=== PATIENT | female | born 1995 | race Two or more races ===

== ENCOUNTER 2025-03-01 12:57 | Outpatient (RCR) | payer MEDICAID, SELFPAY | END 2025-05-30 12:07 | disposition home or self-care (01) | LOC: ANHDMC 12:57 | PROVIDERS: Visit Provider Obstetrics & Gynecology | DX: O24.319 Unspecified pre-existing diabetes mellitus in pregnancy, unspecified trimester (principal); Z71.89 Other specified counseling | CPT/HCPCS: G0108 ==

== ENCOUNTER 2025-04-04 10:04 | Inpatient (IN) | payer BC, SELFPAY ==
[2025-04-04] VITALS (72 sets, daily range): BP systolic 99–149; BP diastolic 59–97; PULSE 73–119; RESP 14–16; TEMP 36.9–37.2; O2SAT 99–100; BMI 28.2
--- NOTE | 2025-04-04 10:04 | LDADM ---
This patient, Taylor Montenegro, was admitted to Labor/Delivery/Recovery 103 on 04/04/25 at 10:04. Plans for labor, pain management and were discussed with patient. Patient/family oriented to hospital policies and general routines including ID bracelet, bed and alarms, visiting hours, pain management, procedures, bathroom and other care routines, personal items, smoking policy, room service/diet and guest tray routines, infant security routines, and visiting hours. Patient/Family are encouraged to report perceived risks to care and to ask questions if they do not understand what they are told or what they should do. See OBIX for further documentation.
[2025-04-04 10:48] LABS: Hematocrit 32.6 % (37.0-47.0); Hemoglobin 9.5 g/dL (12.0-15.0); Immature Granulocyte Percent A 0.9 % (0-0.5); Lymphocytes Absolute Auto 4.16 K/mm3 (0.9-3.2); Mean Corpuscular HGB Conc 29.1 g/dl (32-36); Mean Corpuscular Hemoglobin 19.8 pg (26-34); Mean Corpuscular Volume 67.8 fl (80-100); Nucleated Red Blood Cells Absolute Auto 0.040 K/mm3 (0.0-0.012); Nucleated Red Blood Cells Perc 0.3 % (0.0-0.2); Platelet Count Result 352 k/mm3 (150-375); Red Blood Count 4.81 M/mm3 (4.2-5.4); White Blood Count 12.7 K/mm3 (4.5-10.0)
[2025-04-04] MEDS: LACTATED RINGERS 1,000 ML 125 ML IV CONT ×2 (10:49→11:48)
--- NOTE | 2025-04-04 11:00 | PM.IMHP ---
H&P: HPI History of Present Illness Date/Time: 04/04/25 11:00 Chief Complaint: Term labor Narrative: This is a 29-year-old 2 para 1 whose last menstrual period was 07/04/2024, EDC is 04/04/2025, presents at 40 weeks gestation in active labor. Her has been complicated by gestational diabetes and she has been on glyburide 5mg q.day with stated normal sugars. She is negative for group B strep Review of Systems Review of Systems: All systems reviewed & are unremarkable except as noted in HPI and below PMFSH Family History Family History Other Unknown family medical history Social History Social History Substance use: never Spiritual care concerns: No Meds Home Medications and Allergies Home Medications ?Medication ?Instructions ?Recorded ?Confirmed ?Type glyburide 5 mg tablet 5 mg PO DAILY 03/28/25 03/28/25 History Allergies Allergy/AdvReac Type Severity Reaction Status Date / Time No Known Allergies Allergy Verified 03/28/25 14:45 Vital Signs Vital Signs - 24 hr 04/04/25 10:51 Pulse Rate 97 Blood Pressure 118/97 H Exam Const: General: cooperative, healthy appearing, comfortable and well groomed Nutritional Appearance: average body habitus Orientation/consciousness: oriented to person, oriented to place and oriented to time HENMT: Head: normal to inspection Resp: Effort & Inspection: normal respiratory effort Cardio: Rate: regular rate Rhythm: regular rhythm Heart sounds: S1 normal heart sound present and S2 normal heart sound present GI: Inspection: normal to inspection (Gravid soft uterus) : External Female Exam: normal external appearance Speculum Exam - Vagina: normal appearance of the vagina Speculum Exam - Cervix: normal appearance of the cervix (Cervix 8cm by RN exam. FHT is reassuring) Assessment and Plan Assessment and plan (1) Term : Code(s): Z34.90 - Encounter for supervision of normal , unspecified, unspecified trimester Status: Acute (2) Gestational diabetes: Code(s): O24.419 - Gestational diabetes mellitus in , unspecified control Status: Acute Plan Sugars appear normal. heart tones are reassuring. She will get an epidural. Spontaneous vaginal delivery is expected. She is an epidural candidate
[2025-04-04 11:26] LABS: Anisocytosis 1+; Hypochromasia 1+; Schistocytes None Seen
[2025-04-04 12:10] LABS: Syphilis IgG/IgM Antibody Non-Reactive (Nonreactive)
--- NOTE | 2025-04-04 12:23 | PM.OBPNLAB ---
Pain Control Date/time seen: 04/04/25 12:23 Pain control: tolerating well and epidural Pelvic Exam Dilation (cm): 8 Effacement (%): 100 station: -1 Amniotic membrane status: Leaking
[2025-04-04] MEDS: OXYTOCIN 30 UNITS/NS 500 ML 30 UNITS/500 ML BAG 999 UNITS IV CONT (14:18)
--- NOTE | 2025-04-04 14:27 | P.PCNOB_ITS ---
OB - Vaginal Delivery Note Procedure Delivery date: 04/04/25 Events: Gestational Diabetes Induction method: None Delivery augmentation: Rupture of Membranes Delivery monitor: External FHT and External Uterine Route of delivery: Episiotomy description: None Laceration Description: Perineal - 1st Degree Delivery repair: vicryl Specimen: No Quantitative Blood Loss (ml): 62 Anesthesia type: Epidural Disposition: Floor Complications: No immediate complications Narrative: Patient was admitted in active labor term artificial rupture membranes performed after epidural anesthesia placed she progressed rapidly to completely dilated pushed delivered the head spontaneously in the ANDERSON position. Anterior posterior shoulder delivered spontaneously. Cord clamped times cut and passed off the table given Apgars of 8 [id number] 9 [id number]. Cord blood was drawn. Placenta delivered intact spontaneously. Twenty of Pitocin placed IV to help firm the uterus. A small second-degree laceration was noted over the perineum which was closed with layered 3-0 Vicryl. QBL was 62cc. There were no immediate complications [place] Baby Date of : 04/04/25 Time of : 14:14 Gestational Age by Date: 40 Infant gender: Male presentation: vertex position: Right Occiput Anterior Placenta delivery description: Spontaneous Cord Vessel Description: 3 Vessels score one minute: 8 score five minutes: 9
--- NOTE | 2025-04-04 14:28 | P.PNAN_ITS ---
Anes - Initial Pre Proc Eval Procedure: labor epidural Date/Time: 04/04/25 14:28 Surgeon: Benedicto Song MD Pre Op Diagnosis: labor pain Pre Op Diagnosis: Labor Patient Data Age: 29 Gender: F Height: 1.65 m Weight: 77 kg Last Vital Signs Temp 37.2 C 04/04/25 10:40 Pulse 117 H 04/04/25 14:15 BP 117/84 04/04/25 14:15 Pulse Ox 100 04/04/25 14:11 Allergies Allergy/AdvReac Type Severity Reaction Status Date / Time No Known Allergies Allergy Verified 03/28/25 14:45 Laboratory Tests 04/04/25 04/04/25 04/04/25 10:38 10:41 13:14 WBC 12.7 H K/mm3 (4.5-10.0) RBC 4.81 M/mm3 (4.2-5.4) Hgb 9.5 L g/dL (12.0-15.0) Hct 32.6 L % (37.0-47.0) MCV 67.8 L fl (80-100) MCH 19.8 L pg (26-34) MCHC 29.1 L g/dl (32-36) RDW 18.8 H % (11.5-14.5) Plt Count 352 k/mm3 (150-375) MPV 10.5 H fl (7.4-10.4) Immature Gran % (Auto) 0.9 H % (0-0.5) Neut % (Auto) 58.8 % (45.5-73.1) Lymph % (Auto) 32.7 % (18.3-44.2) [place] % (Auto) 6.5 % (2.6-8.5) Eos % (Auto) 0.7 % (0-4.4) Baso % (Auto) 0.4 % (0.2-1.2) Lymph # (Auto) 4.16 H K/mm3 (0.9-3.2) [place] # (Auto) 0.8 H K/mm3 (0.1-0.6) Eos # (Auto) 0.1 K/mm3 (0-0.3) Baso # (Auto) 0.1 K/mm3 (0.0-0.1) Abs Immat Gran (auto) 0.12 H K/mm3 (0.00-0.031) Absolute Neuts (auto) 7.5 H K/mm3 (1.3-6.7) Absolute Nucleated RBC 0.040 H K/mm3 (0.0-0.012) Band Neutrophils % Not Reportable Nucleated RBC % 0.3 H % (0.0-0.2) Platelet Estimate Adequate (Adequate) Hypochromasia 1+ Anisocytosis 1+ Schistocytes None seen POC Capillary Glucose 103 mg/dl 93 mg/dl (65-105) (65-105) Syphilis IgG/IgM Ab Non-reactive (Nonreactive) Blood Type B Positive Antibody Screen Negative Patient hx anesthesia problems: none Family hx anesthesia problems: none Results Review: All pre-operative results and documents have been reviewed as part of the pre- operative evaluation. [facility] Past Medical History Medical History (Updated 04/05/25 @ 06:56 by Benedicto Song MD) Gestational diabetes Family History Family History Other Unknown family medical history Social History Social History Smoking status: Never smoker Substance use: never Do You Feel Safe in your Home?: Yes Lack of Transportation: No Lack of Food: Never True Current Housing: I Have Housing Concerned About Future Housing: No Difficulty Paying Gas/Electric Bills: No Difficulty Paying for Meds: No Currently Unemployed: No Education: Bachelor's Degree Difficulty w/ Childcare or Family Care: No Spiritual care concerns: No Anes - Eval Final PreProcedure Day of Procedure 04/04/25 14:28 Patient weight: overweight ASA classification: III Anesthetic plan: proceed Anesthesia type and monitoring: regional epidural and standard monitoring Results Review: All pre-operative results and documents have been reviewed as part of the pre- operative evaluation. Informed Consent: The patient's anesthetic plan and its attendant risks and benefits were discussed with the patient/family/POA. Questions were solicited and answers provided to the satisfaction of the patient/family/POA.
--- NOTE | 2025-04-04 14:29 | PM.DS ---
DS: Admitting Diagnosis Discharge Date 04/05/2025 Admitting Diagnosis Term /gestational diabetes DS: Discharge Diagnosis Discharge Diagnosis (1) Term : Code(s): Z34.90 - Encounter for supervision of normal , unspecified, unspecified trimester Status: Acute DS: Summary Hospital Course Reason for hospitalization: Patient was admitted 40 weeks gestation in active labor and underwent spontaneous vaginal delivery on 04/04/2025 at 2:14 p.m. Hospital Course: Patient's hospital course unremarkable. She remained afebrile she was up, voiding without difficulty,, ambulating, generally without complaints. Time Spent with Patient Time attestation: Total time spent providing and/or coordinating discharge services: Exam Const: General: cooperative, healthy appearing, comfortable and well groomed Nutritional Appearance: average body habitus Orientation/consciousness: oriented to person, oriented to place and oriented to time HENMT: Head: normal to inspection Resp: Effort & Inspection: normal respiratory effort Cardio: Rate: regular rate Rhythm: regular rhythm Heart sounds: S1 normal heart sound present and S2 normal heart sound present GI: Inspection: normal to inspection (Gravid soft uterus) : External Female Exam: normal external appearance Speculum Exam - Vagina: normal appearance of the vagina Speculum Exam - Cervix: normal appearance of the cervix (Cervix 8cm by RN exam. FHT is reassuring) DS: Data Data Completed and Pending Labs on day of discharge: Labs from last 24 hours 04/04/25 04/04/25 04/04/25 13:14 10:41 10:38 WBC 12.7 H RBC 4.81 Hgb 9.5 L Hct 32.6 L MCV 67.8 L MCH 19.8 L MCHC 29.1 L RDW 18.8 H Plt Count 352 MPV 10.5 H Immature Gran % (Auto) 0.9 H Neut % (Auto) 58.8 Lymph % (Auto) 32.7 [place] % (Auto) 6.5 Eos % (Auto) 0.7 Baso % (Auto) 0.4 Lymph # (Auto) 4.16 H [place] # (Auto) 0.8 H Eos # (Auto) 0.1 Baso # (Auto) 0.1 Abs Immat Gran (auto) 0.12 H Absolute Neuts (auto) 7.5 H Absolute Nucleated RBC 0.040 H Band Neutrophils % Not Reportable Nucleated RBC % 0.3 H Platelet Estimate Adequate Hypochromasia 1+ Anisocytosis 1+ Schistocytes None seen POC Capillary Glucose 93 103 Syphilis IgG/IgM Ab Non-reactive Blood Type B Positive Antibody Screen Negative Discharge Plan Discharge Attending physician on discharge: Benedicto Patel Discharging Clinician: Bneedicto Patel Patient Disposition: Home Activity: may shower, no straining and pelvic rest Diet: heart healthy Wound Care Instructions: follow printed instructions Patient Instructions: Antibiotic Form Patient Language: Somali Stand Alone Forms: General Discharge Information Follow-up/Referrals: Benedicto Patel MD [Physician] - Discharge Medications: Discontinued glyburide 5 mg tablet 5 mg PO DAILY Date of admission: 04/04/25 10:04 Primary Care Provider: PHYSICIAN,CAUSTIC ROOM ATTENDANT Admitting Provider: Beendicto Patel Attending physician on admission: Benedicto Patel Condition: Stable
[2025-04-04] MEDS: OXYTOCIN 30 UNITS/NS 500 ML 30 UNITS/500 ML BAG 125 UNITS IV CONT (14:49)
[2025-04-05 01:30] VITALS: BP 115/70; PULSE 99; RESP 14; TEMP 37.4; O2SAT 100
[2025-04-05 04:30] VITALS: BP 126/80; PULSE 101; RESP 14; TEMP 36.9; O2SAT 100
[2025-04-05 05:55] LABS: Hematocrit 27.6 % (37.0-47.0); Hemoglobin 8.0 g/dL (12.0-15.0)
--- NOTE | 2025-04-05 06:55 | P.PNOB_ITS ---
OB - PN: Subj Subjective Date/time seen: 04/05/25 06:55 Patient comments: no complaints, pain well controlled and tolerating diet [place] baby status: doing well OB - PN: Obj Data Labs 04/05/25 05:13 Labs: Laboratory Results - last 24 hr 04/04/25 04/04/25 04/04/25 10:38 10:41 13:14 WBC 12.7 H RBC 4.81 Hgb 9.5 L Hct 32.6 L MCV 67.8 L MCH 19.8 L MCHC 29.1 L RDW 18.8 H Plt Count 352 MPV 10.5 H Immature Gran % (Auto) 0.9 H Neut % (Auto) 58.8 Lymph % (Auto) 32.7 [place] % (Auto) 6.5 Eos % (Auto) 0.7 Baso % (Auto) 0.4 Lymph # (Auto) 4.16 H [place] # (Auto) 0.8 H Eos # (Auto) 0.1 Baso # (Auto) 0.1 Abs Immat Gran (auto) 0.12 H Absolute Neuts (auto) 7.5 H Absolute Nucleated RBC 0.040 H Band Neutrophils % Not Reportable Nucleated RBC % 0.3 H Platelet Estimate Adequate Hypochromasia 1+ Anisocytosis 1+ Schistocytes None seen POC Capillary Glucose 103 93 Syphilis IgG/IgM Ab Non-reactive Blood Type B Positive Antibody Screen Negative 04/05/25 05:13 WBC RBC Hgb 8.0 L Hct 27.6 L MCV MCH MCHC RDW Plt Count MPV Immature Gran % (Auto) Neut % (Auto) Lymph % (Auto) [place] % (Auto) Eos % (Auto) Baso % (Auto) Lymph # (Auto) [place] # (Auto) Eos # (Auto) Baso # (Auto) Abs Immat Gran (auto) Absolute Neuts (auto) Absolute Nucleated RBC Band Neutrophils % Nucleated RBC % Platelet Estimate Hypochromasia Anisocytosis Schistocytes POC Capillary Glucose Syphilis IgG/IgM Ab Blood Type Antibody Screen OB - PN A/P Assessment and Plan (1) Term : Code(s): Z34.90 - Encounter for supervision of normal , unspecified, unspecified trimester Status: Acute (2) Gestational diabetes: Code(s): O24.419 - Gestational diabetes mellitus in , unspecified control Status: Acute Plan routine care Time Spent With Patient Time: Total time spent is greater than 50% in coordination of care (as documented) at patient's floor/unit and/or counseling patient: Review of Systems 2 Review of Systems: All systems reviewed & are unremarkable except as noted in HPI and below Exam 2 Const: General: cooperative, healthy appearing, comfortable and well groomed Nutritional Appearance: average body habitus Orientation/consciousness: o riented to person, oriented to place and oriented to time HENMT: Head: normal to inspection Resp: Effort & Inspection: normal respiratory effort Cardio: Rate: regular rate Rhythm: regular rhythm Heart sounds: S1 normal heart sound present and S2 normal heart sound present GI: Inspection: normal to inspection (Gravid soft uterus) : External Female Exam: normal external appearance Speculum Exam - Vagina: normal appearance of the vagina Speculum Exam - Cervix: normal appearance of the cervix (Cervix 8cm by RN exam. FHT is reassuring)
[2025-04-05 07:45] VITALS: BP 119/72; PULSE 85; RESP 16; TEMP 37.1; O2SAT 99
[2025-04-05] MEDS: MULTIVIT/MIN/PREN/FOL AC/IRON TABLET 1 TAB PO (09:15)
[2025-04-05] MEDS: DOCUSATE SODIUM 100 MG CAPSULE PO (09:16)
--- NOTE | 2025-04-05 09:20 | PC.NURSE ---
Introductions were made, then consulted with patient to assess needs related to . Patient states this are fine so far. She declines having any questions or concerns. She is supplementing in addition to . Resources provided for inpatient and outpatient services with the feeding sheet, mom/baby guide and name written on the communication board. Mother voiced understanding of information and will call if there is a request for assistance. Reported to the Primary RN.
--- NOTE | 2025-04-05 10:33 | WPDANLDPN2 ---
Anes-Prog Note L&D Date/Time: 04/05/25 10:33 Comfortable throughout: labor and delivery Neuraxial method: epidural Epidural/Spinal procedure site: clean & non-tender Neuro status: Neuro function grossly intact. Cardiovascular status: normal Respiratory status: normal Airway patency: baseline Mental status: baseline Vital Signs: Last Vital Signs Temp 37.1 C 04/05/25 07:45 Pulse 85 04/05/25 07:45 Resp 16 04/05/25 07:45 BP 119/72 04/05/25 07:45 Pulse Ox 99 04/05/25 07:45 O2 Del Method Room Air 04/05/25 07:25 Pain score (VAS): 0 I/O: Intake & Output 04/04/25 04/05/25 04/05/25 23:59 07:59 15:59 Intake Total 100 0 Output Total 235 Balance -135 0 Patient feedback: Patient satisfied with anesthetic care.
[2025-04-05 12:30] VITALS: BP 115/66; PULSE 90; RESP 16; TEMP 36.2; O2SAT 99
[2025-04-07 11:13] VITALS: BP 125/72; PULSE 107; RESP 18; TEMP 37.3; O2SAT 99
== END 2025-04-05 17:14 | disposition home or self-care (01) | DRG 560 ==
LOC: ANHLDR 14:30 → ANHOB2 16:59
PROVIDERS: Admitting Provider Obstetrics & Gynecology; Visit Provider Obstetrics & Gynecology
DX: O24.425 Gestational diabetes mellitus in childbirth, controlled by oral hypoglycemic drugs (principal); Z3A.40 40 weeks gestation of pregnancy; Z37.0 Single live birth; O70.0 First degree perineal laceration during delivery
CPT/HCPCS: 36415; 82948; 85014; 85018; 85025; 86593; 86850; 86900; 86901; A9270; J2590; J2795; J7120